=== PATIENT | female | born 1960 | race Caucasian/White ===

== ENCOUNTER 2018-05-02 07:00 | Emergency (ER) | payer OTHER ==
--- NOTE | 2018-05-02 07:25 | EDM.PDOC ---
ED HPI GENERAL MEDICAL PROBLEM - General Chief Complaint: ENT Problem Stated Complaint: TOOTH PAIN Time Seen by Provider: 05/02/18 07:04 Source of Information: Reports: Patient History Limitations: Reports: No Limitations - History of Present Illness INITIAL COMMENTS - FREE TEXT/NARRATIVE: The patient presents with left lower jaw tooth pain that radiates up into her ear. This started a couple days ago after flying in from [place]. She has no fever or chills. She had a root canal over a year ago. Onset: Gradual Duration: Day(s): Location: Reports: Other (Left lower jaw tooth pain) Quality: Reports: Sharp Severity: Severe Improves with: Reports: None Worsens with: Reports: None Associated Symptoms: Reports: No Other Symptoms Left Lower Tooth/Teeth Pain Score (Numeric/FACES): 8 - Related Data Allergies Allergy/AdvReac Type Severity Reaction Status Date / Time No Known Allergies Allergy Verified 05/02/18 07:12 Home Meds: Home Meds Acetaminophen/oxyCODONE [Percocet 325-5 MG] 1 tab PO Q6H PRN 05/02/18 [History] Furosemide [Lasix] 20 mg PO DAILY 05/02/18 [History] Gabapentin [Neurontin] 300 mg PO BID 05/02/18 [History] Levothyroxine [Synthroid] 88 mcg PO DAILY 05/02/18 [History] Past Medical History Endocrine/Metabolic History: Reports: Hypothyroidism - Past Surgical History GI Surgical History: Reports: Cholecystectomy Social & Family History - Tobacco Use Smoking Status *Q: Never Smoker ED ROS ENT - Review of Systems Review Of Systems: See Below Constitutional: Reports: No Symptoms HEENT: Reports: Dental Pain (Left lower jaw pain) Respiratory: Reports: No Symptoms Cardiovascular: Reports: No Symptoms Endocrine: Reports: No Symptoms GI/Abdominal: Reports: No Symptoms : Reports: No Symptoms Musculoskeletal: Reports: No Symptoms Skin: Reports: No Symptoms Neurological: Reports: No Symptoms ED EXAM, ENT - Physical Exam Exam: See Below Exam Limited By: No Limitations General Appearance: Alert, No Apparent Distress Ears: Normal External Exam, Normal TMs, Other (Cerumen in the canal but I can see the TM) Mouth/Throat: Other (Pain upon palpation to the left lower jaw with some erythema on the gum line.) Course - Vital Signs Last Recorded V/S: Last Vital Signs Temp 97.2 F 05/02/18 07:09 Pulse 76 05/02/18 07:09 Resp 16 05/02/18 07:09 BP 147/87 H 05/02/18 07:09 Pulse Ox 96 05/02/18 07:09 Departure - Departure Time of Disposition: 07:25 Disposition: Home, Self-Care 01 Condition: Good Clinical Impression: Dental abscess - Discharge Information *PRESCRIPTION DRUG MONITORING PROGRAM REVIEWED*: No *COPY OF PRESCRIPTION DRUG MONITORING REPORT IN PATIENT RICHARD: No Instructions: Dental Abscess Referrals: PCP,None [Primary Care Provider] - Additional Instructions: Take the medication as prescribed. Follow up with your dentist when you get home. Please return if you are worse.
== END 2018-05-02 07:36 | disposition home or self-care (01) ==
LOC: JD.ED 07:00
DX: K04.7 Periapical abscess without sinus (principal); E03.9 Hypothyroidism, unspecified
CPT/HCPCS: 99283